=== PATIENT | male | born 1970 | race Caucasian/White ===

== ENCOUNTER → 2017-10-23 | Outpatient (CLI) | payer OTHER, MEDICARE ==
--- NOTE | 2017-10-23 10:44 | XCELERA REPORT ---
[address] [address] Lower Extremity Arterial Evaluation Name: DENI SEQUEIRA Age: 47 yrs Gender: Male : 1970 Patient Status: Outpatient Patient Location: Study Date: 10/23/2017 08:56 AM Procedure: A color flow and duplex scan of the lower extremity arteries was performed bilaterally with velocity and waveform anaylsis. Reason For Study: ULCER Ordering Physician: ASHA KELLER Performed By: Caro Bess Measurements and Calculations Right Left SPORTS UMPIRE PSV 72.9 168.5 cm/sec Prox PFA PSV -89.9 -164.1 cm/sec Prox SFA PSV -85.6 -51.4 cm/sec Mid SFA PSV -86.9 18.9 cm/sec Dist SFA PSV -86.4 -56.1 cm/sec Prox Pop A PSV 49.1 42.0 cm/sec Dist CHUCKY PSV 43.6 27.5 cm/sec Dist NURSE COORDINATOR PSV 38.5 49.4 cm/sec Jason Pedis PSV 59.1 -40.9 cm/sec Right Side Arterial Evaluation Normal velocity and triphasic waveforms noted from the Common Femoral artery to the infrageniculate vessels. 0 % stenosis . Ankle Brachial index was not done. Left Side Arterial Evaluation Normal velocity and triphasic waveforms noted from the Common Femoral artery to the Femoral. Biphasic with preserved velocities, moderate broadening. From distal femoral to infrageniculate vessels. 20-49 % stenosis in the Femoral artery . Ankle Brachial index was not done. Interpretation Summary No hemodynamically significant lesions in the right lower extremity only, on duplex imaging, at rest. Moderate hemodynamically significant lesions in the left lower extremity only, on duplex imaging, at rest. : ASHA KELLER > Mitchell Barth
== END ==
LOC: SP 08:47
PROVIDERS: ATTEND Nurse Practitioner
DX: L97.522 Non-pressure chronic ulcer of other part of left foot with fat layer exposed (principal)
CPT/HCPCS: 93925

== ENCOUNTER 2017-11-03 11:57 | Inpatient (IN) | payer OTHER, MEDICARE ==
[2017-11-03] MEDS ORDERED: NORMAL SALINE 1000 ML 1,000 ML IV ONE ×2 (11:59→12:23)
[2017-11-03] MEDS ORDERED: CEFTRIAXONE INJ 1000 MG VIAL IV ONE (12:31)
[2017-11-03 12:52] LABS: HEMATOCRIT 24.1 % (37.9-51.0); MEAN CORPUSCULAR HEMOGLOBIN 28.8 pg (27.0-33.4); MEAN CORPUSCULAR HGB CONC 32.3 g/dL (32.0-36.0); MEAN CORPUSCULAR VOLUME 89 fl (80-97); PLATELET COUNT 630 10^3/uL (150-450); RED CELL DISTRIBUTION WIDTH 16.3 % (11.5-14.0); WHITE BLOOD COUNT 14.6 10^3/uL (4.0-10.5)
[2017-11-03 12:58] LABS: INTERNATIONAL RATION (INR) 1.26; PROTHROMBIN TIME 16.4 SEC (11.4-15.4)
[2017-11-03 13:03] LABS: HEMOGLOBIN 7.8 g/dL (13.5-17.0)
--- NOTE | 2017-11-03 13:11 | RADIOLOGY REPORT (SQ) ---
EXAM DESCRIPTION: CHEST SINGLE VIEW COMPLETED DATE/TIME: 11/03/2017 12:51 pm REASON FOR STUDY: hypotensive, sepsis protocol COMPARISON: None. EXAM PARAMETERS: NUMBER OF VIEWS: One view. TECHNIQUE: Single frontal radiographic view of the chest acquired. RADIATION DOSE: NA LIMITATIONS: None. FINDINGS: LUNGS AND PLEURA: No acute infiltrates or effusions. MEDIASTINUM AND HILAR STRUCTURES: No masses. Contour normal. HEART AND VASCULAR STRUCTURES: The heart is normal with normal pulmonary vasculature. BONES: No acute findings. HARDWARE: Hardware from cervical fusion noted. OTHER: Chest leads in place. IMPRESSION: NO ACUTE RADIOGRAPHIC FINDING IN THE CHEST. TECHNICAL DOCUMENTATION: JOB ID: [id number] SC-[id number] 2010 [employer]- All Rights Reserved Reading location - IP/workstation name: [email or web address]
[2017-11-03 13:12] LABS: VENOUS BLOOD BASE EXCESS -1.8 mmol/L; VENOUS BLOOD HCO3 23.7 mmol/L (20-32); VENOUS BLOOD PH 7.36 (7.30-7.42)
[2017-11-03 13:16] LABS: ABSOLUTE LYMPHOCYTES# (MANUAL) 0.6 10^3/uL (0.5-4.7); BAND NEUTROPHILS % (MANUAL) 9 % (3-5); BASOPHILS % (MANUAL) 0 % (0-2); EOSINOPHILS % (MANUAL) 0 % (0-6); LYMPHOCYTES % (MANUAL) 4 % (13-45); MONOCYTES % (MANUAL) 0 % (3-13); SEGMENTED NEUTROPHILS % (MAN) 87 % (42-78); TOTAL CELLS COUNTED 100
[2017-11-03 13:17] LABS: ANISOCYTOSIS 1+; PLATELET COMMENT INCREASED; TOXIC GRANULATION 1+; TOXIC VACUOLATION PRESENT
[2017-11-03 13:20] LABS: ALANINE AMINOTRANSFERASE 28 U/L (21-72); ALBUMIN 2.3 g/dL (3.5-5.0); ALKALINE PHOSPHATASE 176 U/L (38-126); ANION GAP 10 (5-19); ASPARTATE AMINO TRANSFERASE 17 U/L (17-59); BILIRUBIN,DIRECT 0.8 mg/dL (0.0-0.4); BILIRUBIN,TOTAL 0.8 mg/dL (0.2-1.3); BLOOD UREA NITROGEN 17 mg/dL (7-20); CALCIUM 9.2 mg/dL (8.4-10.2); CARBON DIOXIDE 21 mmol/L (22-30); CHLORIDE 101 mmol/L (98-107); GLUCOSE 81 mg/dL (75-110); POTASSIUM 4.4 mmol/L (3.6-5.0); SODIUM 131.8 mmol/L (137-145); TOTAL PROTEIN 6.4 g/dL (6.3-8.2)
[2017-11-03] MEDS ORDERED: VANCOMYCIN HCL INJ 1000 MG VIAL IV ONE (13:45)
[2017-11-03] MEDS ORDERED: DEXTROSE 5%-WATER 250 ML with NOREPINEPHRINE BITARTRATE 4 MG IV PRN ×2 (14:49)
--- NOTE | 2017-11-03 14:59 | ER Document Report ---
ED Blood Pressure Problem - General Chief Complaint: Low Blood Pressure Stated Complaint: POSSIBLE SEPSIS Time Seen by Provider: 11/03/17 12:23 Mode of Arrival: Medic Information source: Patient Notes: Patient is a 47-year-old disabled , quadriplegic who presents to the ER today for low blood pressure after going to the wound care clinic for his chronic decubitus ulcers prior to arrival. They state his blood pressure was 70 /40 when he was there. Patient arrives with a 60/38 blood pressure. does state that he recently was diagnosed with a urinary tract infection but that they did not put him on antibiotics because he has a history of C. difficile. Patient is a patient of the [facility]. He denies any cough, vomiting, blood in his stool. He states he has been having normal stools. He denies any pain anywhere at this time. He has a Acosta catheter all the time. TRAVEL OUTSIDE OF THE [place] IN LAST 30 DAYS: No - Related Data Allergies/Adverse Reactions: No Known Allergies Allergy (Unverified 01/15/16 15:13) Home Medications: morphine, oxybutynin, ascorbic acid, multivitamin, gabapentin , trazodone, citalopram, minocycline, baclofen, calcium polycarbophil, asa, mag oxide, senna, ferrous. Past Medical History - General Information source: Patient - Social History Smoking Status: Current Every Day Smoker Chew tobacco use (# tins/day): No Frequency of alcohol use: None Drug Abuse: Marijuana Family History: Reviewed & Not Pertinent Patient has suicidal ideation: No Patient has homicidal ideation: No - Past Medical History Cardiac Medical History: Denies: Hx Coronary Artery Disease, Hx Heart Attack, Hx Hypertension Pulmonary Medical History: Reports: Hx Pneumonia - HISTORY OF PNEUMONIA Denies: Hx Asthma, Hx Bronchitis, Hx COPD Neurological Medical History: Denies: Hx Cerebrovascular Accident, Hx Seizures Renal/ Medical History: Denies: Hx Peritoneal Dialysis Musculoskeltal Medical History: Denies Hx Arthritis - Gout Psychiatric Medical History: Reports: Hx Depression Past Surgical History: Reports: Hx Orthopedic Surgery - Immunizations Hx Diphtheria, Pertussis, Tetanus Vaccination: No - unsure Review of Systems - Review of Systems Constitutional: No symptoms reported EENT: No symptoms reported Cardiovascular: No symptoms reported Respiratory: No symptoms reported Gastrointestinal: No symptoms reported Genitourinary: See HPI Male Genitourinary: No symptoms reported Musculoskeletal: See HPI Skin: No symptoms reported Hematologic/Lymphatic: No symptoms reported Neurological/Psychological: No symptoms reported Physical Exam - Vital signs Vitals: Temp 98.1 F 11/03/17 11:58 - Notes Notes: PHYSICAL EXAMINATION: GENERAL: Chronically ill-appearing, in no acute distress. HEAD: Atraumatic, normocephalic. EYES: Pupils equal round and reactive to light, extraocular movements intact, sclera anicteric, conjunctiva are normal. ENT: ear canals without erythema or foreign body, TMs pearly sifuentes with good bony landmarks, nares patent, oropharynx clear without exudates. Moist mucous membranes. Airway patent NECK: Normal range of motion, supple without lymphadenopathy LUNGS: CTAB and equal. No wheezes rales or rhonchi. HEART: Regular rate and rhythm without murmurs ABDOMEN: Soft, no tenderness. No guarding, no rebound BACK: no vertebral tenderness GI/: no CVA tenderness EXTREMITIES: No range of motion of bilateral upper and lower extremities, no pitting edema. No cyanosis. NEUROLOGICAL: Cranial nerves grossly intact. No sensation, motor activity to bilateral upper and lower extremities PSYCH: Tired SKIN: Warm, Dry, normal turgor, very large sacral decubitus ulcer, chronic in appearance, no erythema surrounding, multiple decubitus ulcers to bilateral lower extremities and right buttocks, all chronic in appearance Course - Re-evaluation Re-evalutation: 11/03/17 16:55 White blood cell count is 14.6, urinalysis reveals greater than 182 white blood cells, moderate blood and large leukocytes, negative for nitrites. Patient is afebrile here today, mildly tachycardic at 111 bpm on arrival. Hemoglobin is 7.8, patient denies any vomiting or blood in his stool, stool occult today is negative for blood, CT of the chest abdomen and pelvis negative for any acute pathology except that his Acosta is out of place. Nurse advised to push Acosta up into the bladder after deflating the balloon and then reinflate the balloon. Dr. Proctor, hospitalist accepts admission at this time for urosepsis. IV fluids, rocephin given, levophed brought bp up to 100/62 currently. Patient is a full code. 11/03/17 17:45 11/03/17 17:46 - Vital Signs Vital signs: Temp Pulse Resp BP Pulse Ox 98.1 F 13 96/57 L 97 11/03/17 11:58 11/03/17 17:15 11/03/17 17:15 11/03/17 17:15 - Laboratory Result Diagrams: 11/03/17 12:25 11/03/17 12:25 Laboratory results interpreted by me: 11/03/17 11/03/17 11/03/17 12:25 12:25 12:25 WBC 14.6 H RBC 2.70 L Hgb 7.8 L Hct 24.1 L RDW 16.3 H Plt Count 630 H Seg Neuts % (Manual) 87 H Band Neutrophils % 9 H Lymphocytes % (Manual) 4 L Monocytes % (Manual) 0 L Abs Neuts (Manual) 14.0 H Abs Monocytes (Manual) 0.0 L PT 16.4 H Sodium 131.8 L Carbon Dioxide 21 L Direct Bilirubin 0.8 H Alkaline Phosphatase 176 H Albumin 2.3 L Urine Protein Urine Blood Urine Urobilinogen Ur Leukocyte Esterase 11/03/17 15:00 WBC RBC Hgb Hct RDW Plt Count Seg Neuts % (Manual) Band Neutrophils % Lymphocytes % (Manual) Monocytes % (Manual) Abs Neuts (Manual) Abs Monocytes (Manual) PT Sodium Carbon Dioxide Direct Bilirubin Alkaline Phosphatase Albumin Urine Protein 100 H Urine Blood MODERATE H Urine Urobilinogen 4.0 H Ur Leukocyte Esterase LARGE H Critical Care Note - Critical Care Note Total time excluding time spent on procedures (mins): 45 - 45___ minutes spent in critical care time with patient, consulted with attending, speaking with family, placing orders and evaluating tests and labs. Discharge - Discharge Clinical Impression: Sacral decubitus ulcer, stage IV, Decubitus ulcer of heel, bilateral Sepsis Qualifiers: Sepsis type: sepsis due to unspecified organism Qualified Code(s): A41.9 - Sepsis, unspecified organism UTI (urinary tract infection) Qualifiers: Urinary tract infection type: site unspecified Hematuria presence: without hematuria Qualified Code(s): N39.0 - Urinary tract infection, site not specified Leukocytosis Qualifiers: Leukocytosis type: unspecified Qualified Code(s): D72.829 - Elevated white blood cell count, unspecified Condition: Fair Disposition: ADMITTED INPATIENT Admitting Provider: Hospitalist - obay[facility] Unit Admitted: ICU
[2017-11-03] MEDS ORDERED: NOREPINEPHRINE BITARTRATE INJ/PF 4 MG/4 ML SDV IV ONE (15:19)
[2017-11-03 16:26] LABS: APPEARANCE,URINE TURBID; BILIRUBIN,URINE NEGATIVE (NEGATIVE); COLOR,URINE YELLOW; GLUCOSE, URINE NEGATIVE (NEGATIVE); KETONES,URINE NEGATIVE (NEGATIVE); LEUKOCYTE ESTERASE,URINE LARGE (NEGATIVE); NITRITE,URINE NEGATIVE (NEGATIVE); PROTEIN,URINE 100 mg/dL (NEGATIVE); URINE SPECIFIC GRAVITY 1.013
--- NOTE | 2017-11-03 16:36 | RADIOLOGY REPORT (SQ) ---
EXAM DESCRIPTION: CT CHEST WITH; CT ABD/PELVIS WITH IV ONLY COMPLETED DATE/TIME: 11/03/2017 4:13 pm REASON FOR STUDY: hgb 7.8, hypotensive, bleeding? Sepsis COMPARISON: CT pelvis and right lower extremity 02/23/2016 CONTRAST TYPE AND DOSE: contrast/concentration: Isovue 370.00 mg/ml; Total Contrast Delivered: 100.0 ml; Total Saline Delivered: 70.0 ml RENAL FUNCTION: Creatinine 0.7 TECHNIQUE: CT scan of the chest performed using helical scanning technique with dynamic intravenous contrast injection. Images reviewed with lung, soft tissue and bone windows. Reconstructed coronal a nd sagittal MPR images reviewed. All images stored on PACS. CT scan of the abdomen and pelvis performed with intravenous and without oral contrastusing helical s jan technique with dynamic intravenous contrast injection. Images reviewed with lung, soft tissu e and bone windows. Reconstructed coronal and sagittal MPR images reviewed. Delayed images for eval uation of the urinary system also acquired and evaluated. All images stored on PACS. All CT scanners at this facility use dose modulation, iterative reconstruction, and/or weight based d osing when appropriate to reduce radiation dose to as low as reasonably achievable (ALARA). [facility]: Dose Right [facility]: CareDose [facility]: Dose Right [facility]: Teradose 4D [facility]: Smart Technologies RADIATION DOSE: CT Rad equipment meets quality standard of care and radiation dose reduction techniq ues were employed. CTDIvol: 7.8 - 11.7 mGy. DLP: 1174 mGy-cm. . LIMITATIONS: None. FINDINGS: CHEST: LUNGS AND PLEURA: No opacities, nodules, masses. No pneumothorax. No effusions. HILAR AND MEDIASTINAL STRUCTURES: No identified masses or abnormal nodes. Small hiatal hernia HEART AND VASCULAR STRUCTURES: No aneurysm or dissection. No central pulmonary emboli. No pericardi al effusion. Mild cardiomegaly HARDWARE: None. THYROID AND OTHER SOFT TISSUES: No masses. No adenopathy. BONES: No significant finding. OTHER: No other significant finding. ABDOMEN AND PELVIS: LIVER: Normal size. No masses. No dilated ducts. SPLEEN: Normal size. No focal lesions. PANCREAS: No masses. No significant calcifications. No adjacent inflammation or peripancreatic fluid collections. Pancreatic duct not dilated. GALLBLADDER: No identified stones by CT criteria. No inflammatory changes to suggest cholecystitis. ADRENAL GLANDS: No significant masses or asymmetry. RIGHT KIDNEY AND URETER: No solid masses. No significant calcification. No hydronephrosis or hydroure ter. LEFT KIDNEY AND URETER: No solid masses. No significant calcification. No hydronephrosis or hydrouret er. AORTA AND VESSELS: No aneurysm. No dissection. Renal arteries, SMA, celiac without stenosis. RETROPERITONEUM: No retroperitoneal adenopathy, hemorrhage or masses. BOWEL AND PERITONEAL CAVITY: No masses or inflammatory changes. No free fluid or peritoneal masses. Moderate stool in the colon, large amount of stool in the rectosigmoid APPENDIX: Not visualized. No right lower quadrant inflammation ABDOMINAL WALL: No masses. No hernias. PELVIS: Acosta catheter is present with the balloon inflated in the membranous or penile urethra on ax ial image 127. Air-fluid level in a distended urinary bladder. No free pelvic cul-de-sac fluid. No pelvic masses or adenopathy. There is a sacral decubitus, a decubitus ulcer over the posterior left iliac crest, and a decubitus ulcer over the left ischium. BONES: Since the prior CT pelvis in 2016, there has been resorption of the right femoral head and nec k, and scarring or inflammatory change in the right hip joint space. A fluid collection in the right hip joint is present 3.8 x 1.5 cm on axial image 74. There is bony sclerosis and irregularity along the posterior aspect left greater trochanter, left ischium, and lower sacrum related to chronic infe ction OTHER: Findings discussed with Ivette Meyers in the emergency room IMPRESSION: No acute findings over the chest Malpositioned Acosta catheter with air-fluid level in the distended urinary bladder. Sacral, left posterior iliac crest and left ischial decubitus ulcers with adjacent sclerotic reactive bony change indicating probable chronic osteomyelitis Since 2016, there is been bony resorption of the right femoral head and neck, with a small residual f luid collection in the right hip joint space. TECHNICAL DOCUMENTATION: JOB ID: [id number] Quality ID # [id number]: Final reports with documentation of one or more dose reduction techniques (e.g., Au tomated exposure control, adjustment of the mA and/or kV according to patient size, use of iterative reconstruction technique) 2010 [employer]- All Rights Reserved Reading location - IP/workstation name: [email or web address] [id number]
[2017-11-03] MEDS: NORMAL SALINE 1000 ML 1,000 ML IV PRN (17:08)
[2017-11-03] MEDS ORDERED: ACETAMINOPHEN 325 MG TABLET PO PRN (17:32)
[2017-11-03] MEDS ORDERED: MAG HYDROX/AL HYDROX/SIMETH SUSP 30 ML UDCUP PO PRN (17:32)
[2017-11-03] MEDS ORDERED: IPRATROPIUM/ALBUTEROL 0.5-2.5 MG/3 ML AMPUL NEB PRN (17:32)
[2017-11-03] MEDS ORDERED: MAGNESIUM HYDROXIDE SUSP 30 ML UDCUP PO PRN (17:32)
[2017-11-03] MEDS ORDERED: TRAZODONE HCL 50 MG PO PRN (17:39)
[2017-11-03] MEDS ORDERED: OXYBUTYNIN CHLORIDE 5 MG TABLET PO SCH (18:00)
[2017-11-03] MEDS ORDERED: BACLOFEN 10 MG TABLET PO SCH (18:00)
[2017-11-03] MEDS ORDERED: GABAPENTIN PO SCH ×2 (18:00→22:00)
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
[2017-11-03] MEDS ORDERED: ENOXAPARIN SODIUM INJ 40 MG/0.4 ML DISP.SYRIN SUBCUT ONE (19:00)
[2017-11-03] MEDS: RINGERS SOLUTION,LACTATED 1,000 ML IV PRN (19:05)
[2017-11-03] MEDS ORDERED: TRAZODONE HCL 50 MG TABLET PO PRN (20:05)
[2017-11-03] MEDS: FAMOTIDINE 20 MG TABLET PO SCH (22:39)
--- NOTE | 2017-11-03 22:41 | EKG REPORT ---
SEVERITY:- OTHERWISE NORMAL ECG - SINUS TACHYCARDIA : Confirmed by: Cholo Venegas 03-Nov-2017 19:40:27
[2017-11-04] MEDS ORDERED: DEXTROSE 5%-WATER 250 ML with NOREPINEPHRINE BITARTRATE 4 MG IV PRN ×2 (02:43)
[2017-11-04] MEDS: RINGERS SOLUTION,LACTATED 1,000 ML IV PRN (03:36)
[2017-11-04] MEDS: OXYCODONE-ACETAMINOPHEN 5-325 MG TABLET PO PRN ×4 (03:40→19:45)
[2017-11-04 04:48] LABS: ABSOLUTE RETICS # 0.045 10^6/uL (0.028-0.122); ANION GAP 8 (5-19); BLOOD UREA NITROGEN 12 mg/dL (7-20); CALCIUM 8.6 mg/dL (8.4-10.2); CARBON DIOXIDE 20 mmol/L (22-30); CHLORIDE 107 mmol/L (98-107); GLUCOSE 108 mg/dL (75-110); HEMATOCRIT 25.6 % (37.9-51.0); MEAN CORPUSCULAR HEMOGLOBIN 27.8 pg (27.0-33.4); MEAN CORPUSCULAR HGB CONC 31.2 g/dL (32.0-36.0); MEAN CORPUSCULAR VOLUME 89 fl (80-97); PLATELET COUNT 593 10^3/uL (150-450); RED BLOOD COUNT 2.87 10^6/uL (4.35-5.55); RED CELL DISTRIBUTION WIDTH 16.1 % (11.5-14.0); RETICULOCYTE COUNT (AUTO) 1.57 % (0.66-2.85); SODIUM 134.9 mmol/L (137-145); WHITE BLOOD COUNT 13.1 10^3/uL (4.0-10.5)
[2017-11-04 04:54] LABS: IRON(TIBC) < 10.1 ug/dL (49-181)
[2017-11-04 05:06] LABS: ABSOLUTE LYMPHOCYTES# (MANUAL) 1.6 10^3/uL (0.5-4.7); ABSOLUTE MONOCYTES # (MANUAL) 0.8 10^3/uL (0.1-1.4); ABSOLUTE NEUTROPHILS# (MANUAL) 10.7 10^3/uL (1.7-8.2); BAND NEUTROPHILS % (MANUAL) 2 % (3-5); BASOPHILS % (MANUAL) 0 % (0-2); EOSINOPHILS % (MANUAL) 0 % (0-6); LYMPHOCYTES % (MANUAL) 12 % (13-45); MONOCYTES % (MANUAL) 6 % (3-13); SEGMENTED NEUTROPHILS % (MAN) 80 % (42-78); TOTAL CELLS COUNTED 100
[2017-11-04 05:09] LABS: POTASSIUM 3.3 mmol/L (3.6-5.0)
[2017-11-04 05:10] LABS: HYPOCHROMASIA SLIGHT; TOXIC VACUOLATION PRESENT
[2017-11-04 05:11] LABS: PLATELET COMMENT INCREASED; POIKILOCYTOSIS SLIGHT
[2017-11-04 05:13] LABS: OVALOCYTES SLIGHT
[2017-11-04 05:56] LABS: FOLATE > 20.00 ng/mL (>2.76)
[2017-11-04] MEDS ORDERED: VANCOMYCIN HCL 0 MG in DEXTROSE 5%-WATER 250 ML IV NR (09:15)
[2017-11-04] MEDS ORDERED: NORMAL SALINE 1000 ML 1,000 ML IV ONE (09:28)
[2017-11-04] MEDS: FAMOTIDINE 20 MG TABLET PO SCH ×2 (09:37→22:09)
[2017-11-04] MEDS: DOCUSATE SODIUM 100 MG CAPSULE PO SCH (09:38)
--- NOTE | 2017-11-04 09:48 | PDOC PROGRESS REPORT ---
Subjective Progress Note for:: 11/04/17 Subjective:: Patient is not complaining of any pain but he has multiple draining wounds around the perineum left knee, sacral area The wounds are extremely foul-smelling The perineal wounds are soiled with feces Patient's urinary output has been poor He is pressors at this time Gram-negative bacilli and gram-positive cocci have been isolated in blood and urine Patient's mentation was somewhat altered according to staff yesterday His mentation is very much improved this morning he is alert awake answering questions appropriately Reason For Visit: UTI Physical Exam Vital Signs: Temp Pulse Resp BP Pulse Ox 98.6 F 12 112/64 100 11/04/17 07:00 11/04/17 07:37 11/04/17 07:37 11/04/17 07:37 Intake & Output 11/03/17 11/04/17 11/05/17 00:59 00:59 00:59 Intake Total 200 Output Total 650 465 Balance -650 -265 Weight 57.4 kg 57.4 kg Patient looks extremely ill is thin undernourished Pupils are PERRLA extraocular motor intact Conjunctiva pale Neck supple no nodes no bruits Chest no crepitus no retractions Heart regular rhythm no murmur no gallop Lungs decreased breath sounds bilaterally The abdomen is distended but soft Perineum excoriated with shallow ulcers of this scrotum drainage of extreme purulent material from inguinal areas which are excoriated Drainage from around Acosta catheter drainage from the scrotum as well Sacral decubitus stage IV to bone drinks same purulent material soiled with stools Left knee large ulceration lateral aspect joint purulent foul-smelling Swelling of the joint somewhat warm to touch Results Laboratory Results: 11/04/17 04:27 11/04/17 04:27 11/04/17 11/04/17 04:27 04:27 WBC 13.1 H RBC 2.87 L Hgb 8.0 L Hct 25.6 L MCV 89 MCH 27.8 MCHC 31.2 L RDW 16.1 H Plt Count 593 H Seg Neutrophils % Not Reportable Lymphocytes % Not Reportable Monocytes % Not Reportable Eosinophils % Not Reportable Basophils % Not Reportable Absolute Neutrophils Not Reportable Absolute Lymphocytes Not Reportable Absolute Monocytes Not Reportable Absolute Eosinophils Not Reportable Absolute Basophils Not Reportable Retic Count (auto) 1.57 Absolute Retic 0.045 Sodium 134.9 L Potassium 3.3 L D Chloride 107 Carbon Dioxide 20 L Anion Gap 8 BUN 12 Creatinine 0.38 L Est GFR ( Amer) > 60 Est GFR (Non-Af Amer) > 60 Glucose 108 Calcium 8.6 Iron < 10.1 L TIBC 103 L % Saturation UNABLE TO CALCULATE Ferritin 1140.00 H Vitamin B12 > 1000.0 H Folate > 20.00 Impressions: Chest X-Ray 11/03/17 11:59 IMPRESSION: NO ACUTE RADIOGRAPHIC FINDING IN THE CHEST. Abdomen/Pelvis CT 11/03/17 14:58 IMPRESSION: No acute findings over the chest Malpositioned Acosta catheter with air-fluid level in the distended urinary bladder. Sacral, left posterior iliac crest and left ischial decubitus ulcers with adjacent sclerotic reactive bony change indicating probable chronic osteomyelitis Since 2016, there is been bony resorption of the right femoral head and neck, with a small residual fluid collection in the right hip joint space. Chest CT 11/03/17 14:58 IMPRESSION: No acute findings over the chest Malpositioned Acosta catheter with air-fluid level in the distended urinary bladder. Sacral, left posterior iliac crest and left ischial decubitus ulcers with adjacent sclerotic reactive bony change indicating probable chronic osteomyelitis Since 2016, there is been bony resorption of the right femoral head and neck, with a small residual fluid collection in the right hip joint space. Assessment & Plan - Diagnosis (1) Sepsis Is this a current diagnosis for this admission?: Yes Plan: Sepsis secondary to multiple wounds; osteomyelitis of the sacrum; possibly osteomyelitis left knee Sepsis secondary to bacteremia Sepsis secondary to UTI Change antibiotic coverage to meropenem and vancomycin Fluid boluses Reevaluate needs (2) Osteomyelitis Is this a current diagnosis for this admission?: Yes (3) Bacteremia Is this a current diagnosis for this admission?: Yes (4) Paraplegia following spinal cord injury Is this a current diagnosis for this admission?: Yes (5) UTI (urinary tract infection) Qualifiers: Urinary tract infection type: site unspecified Hematuria presence: without hematuria Qualified Code(s): N39.0 - Urinary tract infection, site not specified Is this a current diagnosis for this admission?: Yes (6) Sacral decubitus ulcer, stage IV Is this a current diagnosis for this admission?: Yes Plan: Discussed case with general surgery Patient may need debridement if possible to do it here Patient may need transfer to higher level of care as per general surgery evaluation (7) Need for intravenous access Is this a current diagnosis for this admission?: Yes Plan: We will schedule patient for PICC line on Monday - Time Time Spent with patient: 25-34 minutes - Plan Summary Plan Summary: We will place a rectal tube to keep the sacral wound clean Change Acosta catheter Change antibiotics as above Surgical evaluation Patient's condition is extremely poor critical
[2017-11-04] MEDS ORDERED: (PENDING PHARMACY ID) (Magnesium Oxide [Magnesium] 400 MG) PO SCH (10:00)
[2017-11-04] MEDS ORDERED: CEFTRIAXONE 1 GM/D5W RTU 1 GM/50 ML RTUPB IV SCH (10:00)
[2017-11-04] MEDS ORDERED: CITALOPRAM HYDROBROMIDE 20 MG TABLET PO SCH (10:00)
[2017-11-04] MEDS ORDERED: (PENDING PHARMACY ID) (Citalopram Hydrobromide [Celexa] 40 MG) PO SCH (10:00)
[2017-11-04] MEDS ORDERED: CEFTRIAXONE SODIUM 1,000 MG in DEXTROSE 5%-WATER 50 ML IV SCH (10:00)
[2017-11-04] MEDS ORDERED: ENOXAPARIN SODIUM INJ 40 MG/0.4 ML DISP.SYRIN SUBCUT SCH (10:00)
[2017-11-04] MEDS: VANCOMYCIN HCL 750 MG in DEXTROSE 5%-WATER 250 ML IV SCH ×2 (10:29→19:22)
[2017-11-04] MEDS: LACTULOSE SYRUP 20 GM/30 ML UDCUP PO SCH ×2 (10:29→22:49)
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
--- NOTE | 2017-11-04 11:55 | PDOC TRANSFER SUMMARY ---
General Admission Date/PCP: 11/03/17 17:10 Admission Date: 11/03/17 Transfer Date: 11/04/17 Accepting Facility: [facility] Accepting Physician: DR Francois Hospitalist Resuscitation Status: Full Code - Transfer Diagnosis (1) Sepsis Is this a current diagnosis for this admission?: Yes (2) Osteomyelitis Is this a current diagnosis for this admission?: Yes (3) Bacteremia Is this a current diagnosis for this admission?: Yes (4) Paraplegia following spinal cord injury Is this a current diagnosis for this admission?: Yes (5) UTI (urinary tract infection) Is this a current diagnosis for this admission?: Yes (6) Sacral decubitus ulcer, stage IV Is this a current diagnosis for this admission?: Yes (7) Need for intravenous access Is this a current diagnosis for this admission?: Yes - Transfer Medications Home Medications: Aspirin [Ecotrin] 81 mg PO Q6AM 01/15/16 Baclofen [Baclofen 10 mg Tablet] 20 mg PO TID 01/15/16 Citalopram Hydrobromide [Celexa] 40 mg PO Q6AM 01/15/16 Oxybutynin Chloride 5 mg PO TID 01/15/16 Trazodone HCl 100 mg PO QPM 01/15/16 Ascorbic Acid [Vitamin C 500 mg Tablet] 500 mg PO Q12A 11/03/17 Calcium Polycarbophil [Fiber Lax 625 mg Tablet] 312.5 mg PO TID 11/03/17 Collagenase Clostridium Hist. [Santyl Ointment 30 gm] 1 applic TP QAM MDD FEET( HEELS), KNEE, SACRAL 11/03/17 Ferrous Sulfate [Feosol 325 mg Tablet] 325 mg PO Q6AM 11/03/17 Gabapentin [Neurontin 300 mg Capsule] 300 mg PO TID 11/03/17 Guaifenesin [Mucus Relief] 400 mg PO Q12A 11/03/17 Minocycline HCl [Minocin] 100 mg PO Q12A 11/03/17 Morphine Sulfate [Ms-Contin Sr 30 mg Tablet] 30 mg PO NOON 11/03/17 Multivitamin [Tab-A-Yesy (Multiple Vitamin) Tablet] 1 tab PO NOON 11/03/17 Ranitidine HCl [Zantac 150 mg Tablet] 150 mg PO Q12A 11/03/17 Sennosides [Senna] 8.6 mg PO QPM 11/03/17 Transfer Medications: Current Medications Acetaminophen (Tylenol 325 Mg Tablet) 650 mg PO Q4HP PRN PRN Reason: FOR HEADACHE OR PAIN Stop: 12/03/17 17:31 Al Hydrox/Mg Hydrox/Simethicone (Maalox Plus Susp 30 Udcup) 30 ml PO Q6HP PRN PRN Reason: HEARTBURN Stop: 12/03/17 17:31 Albuterol/Ipratropium (Duoneb 3 Ml Ampul) 3 ml NEB RTQ6HP PRN PRN Reason: SHORTNESS OF BREATH Stop: 12/03/17 17:31 Docusate Sodium (Colace 100 Mg Capsule) 100 mg PO DAILY [facility] Stop: 12/04/17 09:59 Last Admin: 11/04/17 09:38 Dose: 100 mg Famotidine (Pepcid 20 Mg Tablet) 20 mg PO Q12 [facility] Stop: 12/03/17 21:59 Last Admin: 11/04/17 09:37 Dose: 20 mg Ferrous Sulfate (Feosol 325 Mg Tablet) 325 mg PO BIDPCBS [facility] Stop: 12/04/17 17:59 Sodium Chloride (Nacl 0.9% 1000 Ml Iv Soln) 1,000 mls @ 150 mls/hr IV CONTINUOUS PRN PRN Reason: THIS MED IS NOT "PRN" Stop: 12/03/17 16:48 Last Admin: 11/03/17 17:08 Dose: 1,000 ml Lactated Ringer's (Lactated Ringers 1000 Ml Iv Soln) 1,000 mls @ 125 mls/hr IV CONTINUOUS PRN PRN Reason: THIS MED IS NOT "PRN" Stop: 12/03/17 17:31 Last Admin: 11/04/17 03:36 Dose: 1,000 ml Norepinephrine Bitartrate 4 mg (/ Dextrose) 254 mls @ 0 mls/hr IV CONTINUOUS PRN; Protocol; Titrate PRN Reason: THIS MED IS NOT "PRN" Stop: 12/04/17 02:42 Meropenem 1 gm/ Sodium (Chloride) 50 mls @ 100 mls/hr IV Q8 [facility] Stop: 11/11/17 13:59 Vancomycin HCl 750 mg/ (Dextrose) 250 mls @ 166.667 mls/hr IV Q8A [facility] Stop: 11/11/17 09:59 Last Admin: 11/04/17 10:29 Dose: 750 mg Levofloxacin/Dextrose (Levaquin Rtu 750 Mg/D5w 150 Ml Premix) 750 mg in 150 mls @ 100 mls/hr IV NOON [facility] Stop: 11/11/17 11:59 Lactulose (Cephulac Syrup 20 Gm/30 Ml Udcup) 20 gm PO Q12 [facility] Stop: 12/04/17 09:59 Last Admin: 11/04/17 10:29 Dose: 20 gm Magnesium Hydroxide (Milk Of Magnesia 30 Ml Udcup) 30 ml PO DAILYP PRN PRN Reason: FOR CONSTIPATION Stop: 12/03/17 17:31 Ondansetron HCl (Zofran Inj/Pf 4 Mg/2 Ml Sdv) 4 mg IV Q4HP PRN PRN Reason: FOR NAUSEA/VOMITING Stop: 12/03/17 17:31 Oxycodone/Acetaminophen (Percocet 5-325 Mg Tablet) 1 tab PO Q4HP PRN PRN Reason: FOR PAIN Stop: 11/10/17 17:31 Last Admin: 11/04/17 03:40 Dose: 1 tab Sodium Chloride (Saline Flush 2.5 Ml Monoject Prefil Syrin) 2.5 ml IV Q8 [facility] Stop: 12/03/17 21:59 Last Admin: 11/04/17 06:14 Dose: Not Given - Allergies Allergies/Adverse Reactions: No Known Allergies Allergy (Unverified 01/15/16 15:13) Hospital Course Hospital Course: Patient is a very unfortunate 47 year old bedbound, with paraplegia secondary to spinal cord injury 3 years ago Who was brought to the ER with sepsis hyportension and extensive decubiti ulcers Patient has been cared for at home by his family (1) Sepsis Sepsis secondary to multiple wounds; osteomyelitis of the sacrum; possibly osteomyelitis left knee Sepsis secondary to bacteremia Sepsis secondary to UTI Patient is now on meropenem Levaquin and vancomycin (2) Osteomyelitis CT of the pelvis suggestive of osteomyelitis of the sacrum The left knee appears swollen warm; there is a large ulcer on the lateral aspect of the joint The knee is also very suspect for osteomyelitis (3) Bacteremia Initial blood cultures are positive 11/03/17 13:21 Blood Culture - Preliminary Blood Gram Negative Rods 11/03/17 12:25 Blood Culture - Preliminary Blood Gram Positive Cocci Gram Negative Rods (4) Paraplegia following spinal cord injury Fecal incontinence Rectal tube will be placed (5) UTI (urinary tract infection) 11/03/17 14:00 Urine Culture - Preliminary Catheterized Urine Gram Negative Rods Gram Negative Rods#2 Continue meropenem and Levaquin (6) Sacral decubitus ulcer, stage IV Patient was evaluated by general surgeon who feels that patient should be transferred to tertiary center With plastic surgery vascular surgery available as the wounds are extremely extensive Physical Exam Vital Signs: Temp Pulse Resp BP Pulse Ox 98.6 F 12 112/64 100 11/04/17 07:00 11/04/17 07:37 11/04/17 07:37 11/04/17 07:37 Intake & Output 11/03/17 11/04/17 11/05/17 00:59 00:59 00:59 Intake Total 200 Output Total 650 465 Balance -650 -265 Weight 57.4 kg 57.4 kg Patient looks extremely ill is thin undernourished Pupils are PERRLA extraocular motor intact Conjunctiva pale Neck supple no nodes no bruits Chest no crepitus no retractions Heart regular rhythm no murmur no gallop Lungs decreased breath sounds bilaterally The abdomen is distended but soft Perineum excoriated with shallow ulcers of this scrotum drainage of extreme purulent material from inguinal areas which are excoriated Drainage from around Acosta catheter drainage from the scrotum as well Sacral decubitus stage IV to bone drinks same purulent material soiled with stools Left knee large ulceration lateral aspect joint purulent foul-smelling Swelling of the joint somewhat warm to touch Results Laboratory Results: 11/04/17 04:27 11/04/17 04:27 11/04/17 11/04/17 04:27 04:27 WBC 13.1 H RBC 2.87 L Hgb 8.0 L Hct 25.6 L MCV 89 MCH 27.8 MCHC 31.2 L RDW 16.1 H Plt Count 593 H Seg Neutrophils % Not Reportable Lymphocytes % Not Reportable Monocytes % Not Reportable Eosinophils % Not Reportable Basophils % Not Reportable Absolute Neutrophils Not Reportable Absolute Lymphocytes Not Reportable Absolute Monocytes Not Reportable Absolute Eosinophils Not Reportable Absolute Basophils Not Reportable Retic Count (auto) 1.57 Absolute Retic 0.045 Sodium 134.9 L Potassium 3.3 L D Chloride 107 Carbon Dioxide 20 L Anion Gap 8 BUN 12 Creatinine 0.38 L Est GFR ( Amer) > 60 Est GFR (Non-Af Amer) > 60 Glucose 108 Calcium 8.6 Iron < 10.1 L TIBC 103 L % Saturation UNABLE TO CALCULATE Ferritin 1140.00 H Vitamin B12 > 1000.0 H Folate > 20.00 Impressions: Chest X-Ray 11/03/17 11:59 IMPRESSION: NO ACUTE RADIOGRAPHIC FINDING IN THE CHEST. Abdomen/Pelvis CT 11/03/17 14:58 IMPRESSION: No acute findings over the chest Malpositioned Acosta catheter with air-fluid level in the distended urinary bladder. Sacral, left posterior iliac crest and left ischial decubitus ulcers with adjacent sclerotic reactive bony change indicating probable chronic osteomyelitis Since 2016, there is been bony resorption of the right femoral head and neck, with a small residual fluid collection in the right hip joint space. Chest CT 11/03/17 14:58 IMPRESSION: No acute findings over the chest Malpositioned Acosta catheter with air-fluid level in the distended urinary bladder. Sacral, left posterior iliac crest and left ischial decubitus ulcers with adjacent sclerotic reactive bony change indicating probable chronic osteomyelitis Since 2016, there is been bony resorption of the right femoral head and neck, with a small residual fluid collection in the right hip joint space. Plan Discharge Plan: Transfer to [facility] when a bed is available Time Spent: Greater than 30 Minutes
[2017-11-04] MEDS: LEVOFLOXACIN 750 MG/D5W RTU 750 MG/150 ML RTUPB IV SCH (12:54)
[2017-11-04] MEDS: NORMAL SALINE 1000 ML 1,000 ML IV PRN ×2 (12:55→19:23)
[2017-11-04] MEDS ORDERED: LIDOCAINE 2% URO-JET 5 ML KIT MM PRN (13:14)
[2017-11-04] MEDS: MEROPENEM 1 GM in NORMAL SALINE 50 ML IV SCH ×2 (15:45→22:09)
[2017-11-04] MEDS: ONDANSETRON HCL INJ/PF 4 MG/2 ML SDV IV PRN (15:48)
[2017-11-04] MEDS: FERROUS SULFATE 325 MG TABLET PO SCH (19:21)
[2017-11-04] MEDS ORDERED: LIDOCAINE 2% URO-JET 5 ML KIT MM ONE (20:15)
[2017-11-05] MEDS: OXYCODONE-ACETAMINOPHEN 5-325 MG TABLET PO PRN ×4 (00:03→14:37)
[2017-11-05] MEDS: HYDROMORPHONE HCL INJ/PF 2 MG/ML AMPULE IV PRN ×4 (01:43→22:00)
[2017-11-05] MEDS: VANCOMYCIN HCL 750 MG in DEXTROSE 5%-WATER 250 ML IV SCH ×3 (01:44→17:55)
[2017-11-05] MEDS: RINGERS SOLUTION,LACTATED 1,000 ML IV PRN ×2 (02:30→18:59)
[2017-11-05 04:22] LABS: ABSOLUTE EOSINOPHILS # (AUTO) 0.1 10^3/uL (0.0-0.6); ABSOLUTE LYMPHOCYTES (AUTO) 0.8 10^3/uL (0.5-4.7); ABSOLUTE MONOCYTES (AUTO) 0.9 10^3/uL (0.1-1.4); ABSOLUTE NEUT (AUTO) 8.6 10^3/uL (1.7-8.2); BASOPHILS % (AUTO) 0.2 % (0-2); EOSINOPHILS % (AUTO) 0.7 % (0-6); HEMATOCRIT 22.7 % (37.9-51.0); LYMPHOCYTES % (AUTO) 8.1 % (13-45); MEAN CORPUSCULAR HEMOGLOBIN 28.2 pg (27.0-33.4); MEAN CORPUSCULAR HGB CONC 31.9 g/dL (32.0-36.0); MEAN CORPUSCULAR VOLUME 88 fl (80-97); MONOCYTES % (AUTO) 8.6 % (3-13); PLATELET COUNT 506 10^3/uL (150-450); RED BLOOD COUNT 2.57 10^6/uL (4.35-5.55); RED CELL DISTRIBUTION WIDTH 16.1 % (11.5-14.0); SEGMENTED NEUTROPHILS % (AUTO) 82.4 % (42-78); TOTAL CELLS COUNTED % (AUTO) 100 %; WHITE BLOOD COUNT 10.4 10^3/uL (4.0-10.5)
[2017-11-05 04:34] LABS: HEMOGLOBIN 7.2 g/dL (13.5-17.0)
[2017-11-05 04:35] LABS: ANION GAP 6 (5-19); BLOOD UREA NITROGEN 7 mg/dL (7-20); CALCIUM 7.9 mg/dL (8.4-10.2); CARBON DIOXIDE 21 mmol/L (22-30); CHLORIDE 108 mmol/L (98-107); GLUCOSE 107 mg/dL (75-110); SODIUM 134.5 mmol/L (137-145)
[2017-11-05 04:58] LABS: POTASSIUM 2.8 mmol/L (3.6-5.0)
[2017-11-05] MEDS: MEROPENEM 1 GM in NORMAL SALINE 50 ML IV SCH ×3 (05:55→22:00)
--- NOTE | 2017-11-05 09:45 | PDOC PROGRESS REPORT ---
Subjective Progress Note for:: 11/05/17 Subjective:: No change Reason For Visit: UTI Physical Exam Vital Signs: Temp Pulse Resp BP Pulse Ox 97.7 F 57 L 17 102/58 L 100 11/05/17 04:00 11/05/17 08:00 11/05/17 07:00 11/05/17 06:52 11/05/17 07:00 Intake & Output 11/04/17 11/05/17 11/06/17 06:59 06:59 06:59 Intake Total 6808 Output Total 1100 1190 170 Balance -1100 5618 -170 Weight 57.4 kg 60.4 kg General appearance: PRESENT: no acute distress, cooperative Results Laboratory Results: 11/05/17 04:05 11/05/17 04:05 11/04/17 11/05/17 11/05/17 17:30 04:05 04:05 WBC 10.4 RBC 2.57 L Hgb 7.2 L Hct 22.7 L MCV 88 MCH 28.2 MCHC 31.9 L RDW 16.1 H Plt Count 506 H Seg Neutrophils % 82.4 H Lymphocytes % 8.1 L Monocytes % 8.6 Eosinophils % 0.7 Basophils % 0.2 Absolute Neutrophils 8.6 H Absolute Lymphocytes 0.8 Absolute Monocytes 0.9 Absolute Eosinophils 0.1 Absolute Basophils 0.0 Sodium 134.5 L Potassium 2.8 L* Chloride 108 H Carbon Dioxide 21 L Anion Gap 6 BUN 7 Creatinine 0.39 L Est GFR ( Amer) > 60 Est GFR (Non-Af Amer) > 60 Glucose 107 Calcium 7.9 L Magnesium Stool Occult Blood NEGATIVE 11/05/17 04:05 WBC RBC Hgb Hct MCV MCH MCHC RDW Plt Count Seg Neutrophils % Lymphocytes % Monocytes % Eosinophils % Basophils % Absolute Neutrophils Absolute Lymphocytes Absolute Monocytes Absolute Eosinophils Absolute Basophils Sodium Potassium Chloride Carbon Dioxide Anion Gap BUN Creatinine Est GFR ( Amer) Est GFR (Non-Af Amer) Glucose Calcium Magnesium 1.6 Stool Occult Blood Impressions: Chest X-Ray 11/03/17 11:59 IMPRESSION: NO ACUTE RADIOGRAPHIC FINDING IN THE CHEST. Abdomen/Pelvis CT 11/03/17 14:58 IMPRESSION: No acute findings over the chest Malpositioned Acosta catheter with air-fluid level in the distended urinary bladder. Sacral, left posterior iliac crest and left ischial decubitus ulcers with adjacent sclerotic reactive bony change indicating probable chronic osteomyelitis Since 2016, there is been bony resorption of the right femoral head and neck, with a small residual fluid collection in the right hip joint space. Chest CT 11/03/17 14:58 IMPRESSION: No acute findings over the chest Malpositioned Acosta catheter with air-fluid level in the distended urinary bladder. Sacral, left posterior iliac crest and left ischial decubitus ulcers with adjacent sclerotic reactive bony change indicating probable chronic osteomyelitis Since 2016, there is been bony resorption of the right femoral head and neck, with a small residual fluid collection in the right hip joint space. Assessment & Plan - Diagnosis (1) Anemia Qualifiers: Other causes of anemia: nutritional, unspecified Is this a current diagnosis for this admission?: Yes (2) Decubitus ulcer of heel, bilateral Is this a current diagnosis for this admission?: Yes (3) Paraplegia following spinal cord injury Is this a current diagnosis for this admission?: Yes (4) Sacral decubitus ulcer, stage IV Is this a current diagnosis for this admission?: Yes - Plan Summary Plan Summary: A/ quadruplegic patient with significant surgical problems including multiple stage 4 sacral and gluteal decubiti. fecal incontinence, and left lower extrermity skin necrosis Patient VSS, AF WBC normalized P/ Patient was offered transfer to [facility] yesterday; however, patient and declined the transfer due to previous negative experiences. According to the nurse, the [facility] and [facility] might be arranged as early as today. The family also wishes to have the patient transferred to [place] or [facility], but both institutions had no bed available at this time. I still believe that the patient should be transferred to a higher level of care facility where Plastic Surgery service is available to care for this patient's severe decubiti.
[2017-11-05] MEDS: POTASSI CL 20 MEQ/50 ML RIDER 20 MEQ/50 ML RTUPB IV SCH ×2 (10:11→11:48)
[2017-11-05] MEDS: FERROUS SULFATE 325 MG TABLET PO SCH ×2 (10:12→17:55)
[2017-11-05] MEDS: FAMOTIDINE 20 MG TABLET PO SCH ×2 (10:12→21:59)
[2017-11-05] MEDS: DOCUSATE SODIUM 100 MG CAPSULE PO SCH (10:12)
[2017-11-05] MEDS: MAGNESIUM SULFATE 1 GM/D5W 100 ML IV SCH ×2 (10:12→10:57)
[2017-11-05] MEDS: LACTULOSE SYRUP 20 GM/30 ML UDCUP PO SCH ×2 (10:13→21:59)
[2017-11-05] MEDS: ONDANSETRON HCL INJ/PF 4 MG/2 ML SDV IV PRN ×2 (11:02→14:44)
[2017-11-05] MEDS: LEVOFLOXACIN 750 MG/D5W RTU 750 MG/150 ML RTUPB IV SCH (11:48)
[2017-11-05] MEDS ORDERED: POTASSIUM CHLORIDE 20 MEQ/15 ML UDCUP PO SCH (12:15)
[2017-11-05] MEDS ORDERED: COLLAGENASE CLOSTRIDIUM HIST. OINT 30 GM TOP SCH (15:00)
--- NOTE | 2017-11-05 18:43 | PDOC PROGRESS REPORT ---
Subjective Progress Note for:: 11/05/17 Subjective:: Patient admitted with sepsis from infected multiple wounds and ulcers as well as a Cathgeter associated UTI. He was on Levophed due to hypotension but this has since been discontinued with a MAP of >65. Family had refused transfer to [facility] however arrangements have been made for transfer to the [facility] [place] after discussion with Dr. Stewart. Patient has been accepted for transfer however the actual transfer will depend on carlos availability Reason For Visit: UTI Physical Exam Vital Signs: Temp Pulse Resp BP Pulse Ox 97.5 F 79 8 L 85/49 L 100 11/05/17 16:00 11/05/17 09:27 11/05/17 18:25 11/05/17 18:25 11/05/17 18:25 Intake & Output 11/04/17 11/05/17 11/06/17 06:59 06:59 06:59 Intake Total 6808 Output Total 1100 1190 1025 Balance -1100 5618 -1025 Weight 57.4 kg 60.4 kg General appearance: PRESENT: no acute distress, cooperative, thin - Chhronically ill looking Head exam: PRESENT: atraumatic Respiratory exam: PRESENT: clear to auscultation daksha. ABSENT: rales, rhonchi, wheezes GI/Abdominal exam: PRESENT: distended, normal bowel sounds. ABSENT: tenderness Rectal exam: PRESENT: deferred Musculoskeletal exam: PRESENT: deformity. ABSENT: ambulatory, full ROM Neurological exam: PRESENT: alert, awake, oriented to person, oriented to place , oriented to time, motor sensory deficit - paraplegic Skin exam: PRESENT: other - Please see extensive wounds and decubiti as documented in nursing notes Results Laboratory Results: 11/05/17 04:05 11/05/17 04:05 11/04/17 11/05/17 11/05/17 17:30 04:05 04:05 WBC 10.4 RBC 2.57 L Hgb 7.2 L Hct 22.7 L MCV 88 MCH 28.2 MCHC 31.9 L RDW 16.1 H Plt Count 506 H Seg Neutrophils % 82.4 H Lymphocytes % 8.1 L Monocytes % 8.6 Eosinophils % 0.7 Basophils % 0.2 Absolute Neutrophils 8.6 H Absolute Lymphocytes 0.8 Absolute Monocytes 0.9 Absolute Eosinophils 0.1 Absolute Basophils 0.0 Sodium 134.5 L Potassium 2.8 L* Chloride 108 H Carbon Dioxide 21 L Anion Gap 6 BUN 7 Creatinine 0.39 L Est GFR ( Amer) > 60 Est GFR (Non-Af Amer) > 60 Glucose 107 Calcium 7.9 L Magnesium Stool Occult Blood NEGATIVE 11/05/17 04:05 WBC RBC Hgb Hct MCV MCH MCHC RDW Plt Count Seg Neutrophils % Lymphocytes % Monocytes % Eosinophils % Basophils % Absolute Neutrophils Absolute Lymphocytes Absolute Monocytes Absolute Eosinophils Absolute Basophils Sodium Potassium Chloride Carbon Dioxide Anion Gap BUN Creatinine Est GFR ( Amer) Est GFR (Non-Af Amer) Glucose Calcium Magnesium 1.6 Stool Occult Blood Impressions: Chest X-Ray 11/03/17 11:59 IMPRESSION: NO ACUTE RADIOGRAPHIC FINDING IN THE CHEST. Abdomen/Pelvis CT 11/03/17 14:58 IMPRESSION: No acute findings over the chest Malpositioned Acosta catheter with air-fluid level in the distended urinary bladder. Sacral, left posterior iliac crest and left ischial decubitus ulcers with adjacent sclerotic reactive bony change indicating probable chronic osteomyelitis Since 2016, there is been bony resorption of the right femoral head and neck, with a small residual fluid collection in the right hip joint space. Chest CT 11/03/17 14:58 IMPRESSION: No acute findings over the chest Malpositioned Acosta catheter with air-fluid level in the distended urinary bladder. Sacral, left posterior iliac crest and left ischial decubitus ulcers with adjacent sclerotic reactive bony change indicating probable chronic osteomyelitis Since 2016, there is been bony resorption of the right femoral head and neck, with a small residual fluid collection in the right hip joint space. Assessment & Plan - Diagnosis (1) Paraplegia following spinal cord injury Is this a current diagnosis for this admission?: Yes (2) Anemia Qualifiers: Other causes of anemia: nutritional, unspecified Is this a current diagnosis for this admission?: Yes (3) Decubitus ulcer of heel, bilateral Is this a current diagnosis for this admission?: Yes (4) Sepsis Qualifiers: Sepsis type: sepsis due to unspecified organism Qualified Code(s): A41.9 - Sepsis, unspecified organism Is this a current diagnosis for this admission?: Yes Plan: Secondary to UTI as well as infected wounds. Wound L knee and Blood culture yielding Gram negative rods, urine culture yielding Pseudomonas and Klebsiella Patient is on Meropenem, Levaquin and Vancomycin which can likely be dc as no MRSA is growing once final culture results available (5) UTI (urinary tract infection) Qualifiers: Urinary tract infection type: site unspecified Hematuria presence: without hematuria Qualified Code(s): N39.0 - Urinary tract infection, site not specified Is this a current diagnosis for this admission?: Yes (6) Fever Qualifiers: Fever type: unspecified Qualified Code(s): R50.9 - Fever, unspecified Is this a current diagnosis for this admission?: Yes (7) Sacral decubitus ulcer, stage IV Is this a current diagnosis for this admission?: Yes - Time Time Spent with patient: 35 or more minutes - [facility] Medications reviewed and adjusted accordingly: Yes Anticipated discharge: Other - [facility] - Inpatient Certification Based on my medical assessment, after consideration of the patient's comorbidities, presenting symptoms, or acuity I expect that the services needed warrant INPATIENT care.: Yes Medical Necessity: Need For IV Fluids, Need for IV Antibiotics
[2017-11-05] MEDS ORDERED: POTASSIUM CHLORIDE 20 MEQ/50 ML RTU IV ONE (18:45)
[2017-11-05 23:56] VITALS: BP 85/51
[2017-11-06] MEDS: OXYCODONE-ACETAMINOPHEN 5-325 MG TABLET PO PRN (01:02)
== END 2017-11-06 01:40 | DRG 871 ==
LOC: ER 11:57 → EH 17:10 → ICU 20:30
PROVIDERS: ADMIT Emergency Medicine; ATTEND Emergency Medicine
DX: A41.9 Sepsis, unspecified organism (principal); L89.154 Pressure ulcer of sacral region, stage 4; G82.50 Quadriplegia, unspecified; N39.0 Urinary tract infection, site not specified; M86.68 Other chronic osteomyelitis, other site; L89.319 Pressure ulcer of right buttock, unspecified stage; L89.629 Pressure ulcer of left heel, unspecified stage; L89.619 Pressure ulcer of right heel, unspecified stage; D64.9 Anemia, unspecified; F17.210 Nicotine dependence, cigarettes, uncomplicated; B96.20 Unspecified Escherichia coli [E. coli] as the cause of diseases classified elsewhere; B96.1 Klebsiella pneumoniae [K. pneumoniae] as the cause of diseases classified elsewhere; B95.1 Streptococcus, group B, as the cause of diseases classified elsewhere; B96.5 Pseudomonas (aeruginosa) (mallei) (pseudomallei) as the cause of diseases classified elsewhere; Z79.82 Long term (current) use of aspirin; Z79.899 Other long term (current) drug therapy
CPT/HCPCS: 36415; 71045; 71260; 74177; 80048; 80053; 80202; 81001; 82272; 82607; 82728; 82746; 82803; 83540; 83550; 83605; 83735; 85025; 85045; 85610; 86850; 86900; 86901; 87040; 87070; 87077; 87086; 87088; 87186; 87205; 93005; 93010; 96361; 96365; 96366; 96367; 99291; C1769; J0696; J1170; J1650; J1956; J2185; J2405; J3370; J3475; J3480; J3490; J7030; J7060; J7120